=== PATIENT | female | born 1950 | race Two or more races ===

== ENCOUNTER → 2024-05-18 10:39 | Outpatient (CLI) | payer OTHER ==
[~2024-05-18 10:39] MED LIST: ATORVASTATIN CA40 MG PO; CANDESARTAN-HC1 EAC2 PO; CLONAZEPAM0.5 MG PO; GLIMEPIRIDE4 M1 PO; METOPROLOL SUCC50 MG PO; SERTRALINE HCL25 MG PO; SYNJARDY 12.5-1 EACH PO
== END | disposition home or self-care (01) ==
LOC: NUCLEAR 10:39
PROVIDERS: ATTEND Internal Medicine
DX: I10 Essential (primary) hypertension (principal); I44.7 Left bundle-branch block, unspecified

== ENCOUNTER 2024-05-18 12:42 | Inpatient (IN) | payer OTHER ==
[~2024-05-18] VITALS: Ht 121.9 cm; Wt 52.2 kg
[2024-05-18] MEDS ORDERED: ATORVASTATIN CA40 MG PO (13:06)
[2024-05-18] MEDS ORDERED: SYNJARDY 12.5-1 EACH PO (13:06)
[2024-05-18] MEDS ORDERED: SERTRALINE HCL25 MG PO (13:06)
[2024-05-18] MEDS ORDERED: METOPROLOL SUCC50 MG PO (13:07)
[2024-05-18] MEDS ORDERED: CANDESARTAN-HC1 EAC2 PO (13:07)
[2024-05-18] MEDS ORDERED: GLIMEPIRIDE4 M1 PO (13:07)
[2024-05-18] MEDS ORDERED: CLONAZEPAM0.5 MG PO (13:07)
--- NOTE | 2024-05-18 13:16 | NUR ---
PTE ALERTA Y ORIENTADA X3. ES TRAIDA POR RENARD YIP DE MEDICINA NUCLEAR QUIEN REFIERE QUE SE LE ESTABA REALIZANDO UN ECHO Y EL MISMO SALIO ALTERADO. ESTABAN MELLO ORDENA QUE PTE SEA LLEVADA A ER PARA SER ADMITIDA. SE REALIZA EKG EL CUAL SE PRESENTA A QUIEN ORDENA A UBICAR A PTE EN CRITICO CONECTADA A MONITOR CARDIACO Y OXIMETRIA DE PULSO CONTINUA. SE ENTREGA A RENARD MCDOWELL
[2024-05-18] MEDS ORDERED: NITROGLYCERIN 250 ML IV SCH (13:30)
[2024-05-18] MEDS ORDERED: FUROsemide 40 MG/4 ML VIAL IV ONE (13:30)
[2024-05-18 13:42] LABS: HEMATOCRIT 47.9 % (36.0-45.00); HEMOGLOBIN 16.3 g/dL (12.0-15.00); MEAN CELL VOLUME 90.5 fL (80.00-100.00); MEAN CORPUSCULAR HEMOGLOBIN 30.7 pg (27.00-32.0); PLATELET COUNT 224 K/uL (150-450); RED BLOOD COUNT 5.29 M/uL (4.00-6.00); RED CELL DISTRIBUTION WIDTH 14.7 % (11.5-14.5)
[2024-05-18 14:10] LABS: INR 1.24; PARTIAL THROMBOPLASTIN TIME 26.2 SECONDS (22.0-34.0); PROTHROMBIN TIME 13.3 SECONDS (9.0-11.5)
[2024-05-18 14:15] LABS: ALBUMIN 3.7 gm/dL (3.4-5.0); BILIRUBIN TOTAL 0.94 mg/dL (0.3-1.2); CALCIUM 9.9 mg/dL (8.5-10.1); CREATININE SERUM 0.85 mg/dL (0.55-1.02); GFR 65.93; GLOBULINA 3.9 G/DL (2.4-3.5); POTASSIUM 3.83 mEq/L (3.5-5.1); TOTAL PROTEIN 7.6 gm/dL (6.4-8.2)
--- NOTE | 2024-05-18 14:24 | NUR ---
1330 SE UBICA A PACIENTE EN AREA DE ICU-2, SE CONECTA A MONITOR CARDIACO Y OXIMETRIA DE PULSO CONTINUA. SE COLECTAN MUESTRAS DE LABORATORIO Y SE REALIZA CANALIZACION A PACIENTE EN BRAZO DERECHO X2 CON ANGIO #18, AMBAS PATENTES LIBRES DE EDEMA Y ERITEMA. EXTREMIDADES SUPERIORES E INFERIORES LIBRES DE EDEMA. 1358 SE NOTIFICAN ABG'S A TERAPISTA SPENCER 1415 SE INSERTA SENIOR BAJO MEDIDAS ESTERILES. 1440 DR. MELISSA MELLO PASA A CONSULTAR A PACIENTE 1445 TERAPISTA TJ REALIZA PRUEBA DE ABG'S
[2024-05-18 14:26] LABS: ABG PH 7.444 (7.35-7.45); ABG PO2 80.9 mmHg (80-100); ABG pCO2 30.6 mmHg (35-45); BASE EXCESS -2.4 mmol/l; BICARBONATE 20.5 mmol/l (23-25); SaO2 96.3 %; Tco2 21.4 mmol/l
[2024-05-18] MEDS ORDERED: NITROGLYCERIN IN 5 % DEXTROSE 250 ML IV SCH (14:30)
[2024-05-18 14:35] LABS: allen test SATISFACTORY; o2 32 %; puncture site RADIAL RIGHT
[2024-05-18] MEDS ORDERED: IPRATROPIUM BROMIDE 0.5 MG/2.5 ML AMPUL.NEB IH SCH (14:50)
[2024-05-18] MEDS ORDERED: ACETAMINOPHEN 500 MG GEL..CAP PO PRN (15:00)
[2024-05-18] MEDS ORDERED: INSULIN LISPRO 1,000 UNIT/10 ML UNITS SUBCUTANEO PRN (15:00)
[2024-05-18] MEDS ORDERED: DEXTROSE 50 % IN WATER 0.5 G/ML DISP.SYRIN IV PRN (15:00)
[2024-05-18 15:31] VITALS: BP 160/88; O2SAT 100
[2024-05-18 15:33] VITALS: BP 168/90
[2024-05-18 16:27] LABS: URINE APPEARANCE Clear; URINE BILIRRUBIN Negative (NEGATIVE); URINE BLOOD Small; URINE COLOR Yellow; URINE GLUCOSE Negative (NEGATIVE); URINE KETONE Negative (NEGATIVE); URINE LEUKOCYTE Negative; URINE NITRATE Negative; URINE PROTEIN 30 (NEGATIVE); URINE UROBILINOGEN 0.2 E.U./dl
[2024-05-18 16:30] LABS: URINE RBC 18.8 uL (0.0-20.8)
[2024-05-18 16:36] LABS: URINE BACTERIA 1.2 uL (0.0-1933); URINE EPITHELIAL CELLS 0.3 uL (0.0-38.8); URINE WBC 0.9 uL (0.0-23.2)
[2024-05-18] MEDS ORDERED: ENOXAPARIN SODIUM 60 MG/0.6 ML SYRINGE SUBCUTANEO SCH (17:00)
[2024-05-18 18:28] VITALS: BP 141/77; O2SAT 100
[2024-05-18 20:34] VITALS: BP 146/77; O2SAT 96
[2024-05-18] MEDS ORDERED: FUROsemide 20 MG/2 ML VIAL IV SCH (21:00)
[2024-05-18] MEDS ORDERED: METOPROLOL SUCCINATE 25 MG TAB.SR.24H PO SCH (21:27)
[2024-05-18 22:21] VITALS: BP 168/90; O2SAT 100
[2024-05-18 23:41] VITALS: BP 121/71; O2SAT 100
[2024-05-19] VITALS (10 sets, daily range): BP systolic 136–170; BP diastolic 77–99; O2SAT 98–100
[2024-05-19] MEDS ORDERED: FUROsemide 20 MG/2 ML VIAL IV SCH (01:00)
[2024-05-19 06:44] LABS: HEMATOCRIT 41.7 % (36.0-45.00); HEMOGLOBIN 14.5 g/dL (12.0-15.00); MEAN CELL VOLUME 88.8 fL (80.00-100.00); MEAN CORPUSCULAR HGB CONC 34.9 g/dl (32.0-36.0); PLATELET COUNT 157 K/uL (150-450); RED BLOOD COUNT 4.69 M/uL (4.00-6.00); RED CELL DISTRIBUTION WIDTH 14.6 % (11.5-14.5)
[2024-05-19] MEDS ORDERED: INSULIN LISPRO 1,000 UNIT/10 ML UNITS SUBCUTANEO PRN (06:45)
[2024-05-19 07:45] LABS: BILIRUBIN TOTAL 0.82 mg/dL (0.3-1.2); CALCIUM 9.2 mg/dL (8.5-10.1); CHOL HDL RATIO 3.4 (0-5.0); CREATININE SERUM 0.81 mg/dL (0.55-1.02); GFR 69.7; GLOBULINA 3.1 G/DL (2.4-3.5); MAGNESIUM 1.6 mg/dL (1.8-2.4); PHOSPHOROUS 5.3 mg/dL (2.5-4.9); POTASSIUM 3.44 mEq/L (3.5-5.1); TOTAL PROTEIN 6.1 gm/dL (6.4-8.2); TSH 1.81 uIU/mL (0.358-3.74)
[2024-05-19] MEDS ORDERED: FAMOTIDINE/PF 20 MG in 0.9 % SODIUM CHLORIDE 8 ML IV PUSH SCH (09:00)
[2024-05-19] MEDS ORDERED: SPIRONOLACTONE 25 MG TABLET PO SCH (09:00)
[2024-05-19] MEDS ORDERED: ATORVASTATIN CALCIUM 40 MG TABLET PO SCH (09:00)
[2024-05-19] MEDS ORDERED: SERTRALINE HCL 100 MG TABLET PO SCH (09:00)
[2024-05-19] MEDS ORDERED: INSULIN NPH HUM/REG INSULIN HM 1,000 UNIT/10 ML UNITS SUBCUTANEO STA (09:55)
[2024-05-19] MEDS ORDERED: MAGNESIUM SULFATE 1,000 MG in 0.9 % SODIUM CHLORIDE 50 ML IV ONE (11:00)
[2024-05-19] MEDS ORDERED: CLONAZEPAM 0.5 MG TABLET PO SCH (21:00)
[2024-05-20] VITALS (22 sets, daily range): BP systolic 113–156; BP diastolic 62–875; O2SAT 54–100
[2024-05-20] MEDS ORDERED: INSULIN NPH HUM/REG INSULIN HM 1,000 UNIT/10 ML UNITS SUBCUTANEO SCH (08:00)
[2024-05-21] VITALS (24 sets, daily range): BP systolic 80–174; BP diastolic 36–102; O2SAT 12–100
[2024-05-21] MEDS ORDERED: EMPAGLIFLOZIN 10 MG TABLET PO NR (12:00)
[2024-05-21] MEDS ORDERED: AMIODARONE HCL 200 MG TABLET PO SCH (21:00)
[2024-05-22] VITALS (11 sets, daily range): BP systolic 137–166; BP diastolic 66–96; O2SAT 100
[2024-05-22 07:45] LABS: HEMATOCRIT 41.5 % (36.0-45.00); HEMOGLOBIN 14.2 g/dL (12.0-15.00); MEAN CELL VOLUME 90.6 fL (80.00-100.00); MEAN CORPUSCULAR HEMOGLOBIN 30.9 pg (27.00-32.0); MEAN CORPUSCULAR HGB CONC 34.1 g/dl (32.0-36.0); PLATELET COUNT 177 K/uL (150-450); RED BLOOD COUNT 4.58 M/uL (4.00-6.00); RED CELL DISTRIBUTION WIDTH 14.3 % (11.5-14.5)
[2024-05-22 07:53] LABS: ALBUMIN 2.9 gm/dL (3.4-5.0); CALCIUM 9.1 mg/dL (8.5-10.1); CREATININE SERUM 0.94 mg/dL (0.55-1.02); GFR 58.7; PHOSPHOROUS 3.9 mg/dL (2.5-4.9); POTASSIUM 4.17 mEq/L (3.5-5.1)
[2024-05-22] MEDS ORDERED: ASPIRIN 81 MG TABLET.EC PO SCH (09:00)
[2024-05-22] MEDS ORDERED: LOSARTAN POTASSIUM 25 MG TABLET PO SCH (09:00)
[2024-05-22] MEDS ORDERED: EMPAGLIFLOZIN 10 MG TABLET PO SCH (09:00)
[2024-05-23 04:00] VITALS: BP 137/73; O2SAT 100
[2024-05-23] MEDS ORDERED: INSULIN NPH HUMAN ISOPHANE 1,000 UNITS/10 ML UNITS SUBCUTANEO SCH (08:00)
[2024-05-23 12:00] VITALS: BP 143/73; O2SAT 100
[2024-05-23 16:05] VITALS: BP 117/90; O2SAT 100
[2024-05-23] MEDS ORDERED: FUROsemide 20 MG/2 ML VIAL IV SCH (21:00)
[2024-05-23 21:18] VITALS: O2SAT 97
[2024-05-23 21:35] VITALS: BP 143/81; O2SAT 98
[2024-05-24] VITALS (9 sets, daily range): BP systolic 138–160; BP diastolic 73–85; O2SAT 93–98
[2024-05-24 06:05] LABS: HEMATOCRIT 45.7 % (36.0-45.00); HEMOGLOBIN 15.7 g/dL (12.0-15.00); MEAN CELL VOLUME 89.8 fL (80.00-100.00); MEAN CORPUSCULAR HEMOGLOBIN 30.8 pg (27.00-32.0); MEAN CORPUSCULAR HGB CONC 34.3 g/dl (32.0-36.0); PLATELET COUNT 207 K/uL (150-450); RED BLOOD COUNT 5.08 M/uL (4.00-6.00); RED CELL DISTRIBUTION WIDTH 14.3 % (11.5-14.5)
[2024-05-24 07:02] LABS: BILIRUBIN TOTAL 0.64 mg/dL (0.3-1.2); CALCIUM 9.5 mg/dL (8.5-10.1); CREATININE SERUM 1.3 mg/dL (0.55-1.02); GFR 40.38; GLOBULINA 4.1 G/DL (2.4-3.5); MAGNESIUM 2.3 mg/dL (1.8-2.4); PHOSPHOROUS 4.4 mg/dL (2.5-4.9); POTASSIUM 4.17 mEq/L (3.5-5.1); TOTAL PROTEIN 7.1 gm/dL (6.4-8.2)
[2024-05-24] MEDS ORDERED: FAMOtidine 20 MG TABLET PO SCH (09:00)
[2024-05-24] MEDS ORDERED: SODIUM CHLORIDE 0.45 % 1,000 ML IV SCH (14:00)
[2024-05-24] MEDS ORDERED: INSULIN REGULAR, HUMAN 1,000 UNIT/10 ML UNITS IV STA (17:31)
[2024-05-24] MEDS ORDERED: INSULIN NPH HUMAN ISOPHANE 1,000 UNITS/10 ML UNITS SUBCUTANEO STA (21:18)
[2024-05-25] VITALS (9 sets, daily range): BP systolic 147–160; BP diastolic 78–83; O2SAT 90–99
[2024-05-25 05:47] LABS: CALCIUM 10.2 mg/dL (8.5-10.1); CREATININE SERUM 1.04 mg/dL (0.55-1.02); GFR 52.24; POTASSIUM 4.89 mEq/L (3.5-5.1)
[2024-05-25] MEDS ORDERED: INSULIN NPH HUMAN ISOPHANE 1,000 UNITS/10 ML UNITS SUBCUTANEO SCH ×2 (08:00→21:00)
[2024-05-26] VITALS (10 sets, daily range): BP systolic 124–137; BP diastolic 69–81; O2SAT 95–100
[2024-05-26] MEDS ORDERED: INSULIN NPH HUMAN ISOPHANE 1,000 UNITS/10 ML UNITS SUBCUTANEO STA (09:27)
[2024-05-27 01:04] VITALS: BP 146/67; O2SAT 96
[2024-05-27 01:26] VITALS: O2SAT 95
[2024-05-27 05:31] VITALS: O2SAT 98
[2024-05-27 12:22] VITALS: BP 152/70; O2SAT 99
[2024-05-27 16:12] VITALS: BP 154/75; O2SAT 99
[2024-05-28 01:05] VITALS: BP 166/77; O2SAT 100
[2024-05-28 09:51] VITALS: BP 150/83; O2SAT 98
[2024-05-28] MEDS ORDERED: AMIODARONE HCL200 MG PO (13:27)
[2024-05-28] MEDS ORDERED: LIPITOR40 M1 PO (13:27)
[2024-05-28] MEDS ORDERED: LOSARTAN POTASS25 MG PO (13:28)
[2024-05-28] MEDS ORDERED: SPIRONOLACTONE25 MG PO (13:28)
[2024-05-28] MEDS ORDERED: TOPROL XL25 M1 PO (13:28)
[2024-05-28] MEDS ORDERED: ST. JOSEPH ASPI81 M2 PO (13:28)
[2024-05-28] MEDS ORDERED: SERTRALINE HCL25 MG PO (13:29)
[2024-05-28] MEDS ORDERED: CLONAZEPAM0.5 MG PO (13:29)
[2024-05-28] MEDS ORDERED: SERTRALINE HCL100 MG PO (13:29)
[2024-05-28] MEDS ORDERED: LASIX40 MG PO (13:30)
[2024-05-28] MEDS ORDERED: JARDIANCE10 MG PO (13:30)
[2024-05-28] MEDS ORDERED: FAMOTIDINE20 MG PO (13:30)
[2024-05-28] MEDS ORDERED: HUMULIN N100 UNIT/2 SUBCUTANEO ×2 (13:30)
== END 2024-05-28 15:09 | disposition home or self-care (01) | DRG 291 ==
LOC: ER 12:42 → ICU-2 15:50 → ICU 05-19 20:38 → MEDI 05-23 18:12
PROVIDERS: General Practice; Internal Medicine; Internal Medicine Nephrology; ADMIT Internal Medicine; ATTEND Internal Medicine
PROC: B22 Imaging, Heart, Computerized Tomography (CT Scan) (ICD-10-PCS; principal; 2024-05-18)
PROC: 4A033R1 Measurement of Arterial Saturation, Peripheral, Percutaneous Approach (ICD-10-PCS; 2024-05-18)
PROC: 3E0F7GC Introduction of Other Therapeutic Substance into Respiratory Tract, Via Natural or Artificial Opening (ICD-10-PCS; 2024-05-18)
PROC: B246ZZZ Ultrasonography of Right and Left Heart (ICD-10-PCS; 2024-05-22)
PROC: 4A12X4Z Monitoring of Cardiac Electrical Activity, External Approach (ICD-10-PCS; 2024-05-23)
DX: I11.0 Hypertensive heart disease with heart failure (principal); I50.21 Acute systolic (congestive) heart failure; I47.29 Other ventricular tachycardia; R06.02 Shortness of breath; E11.65 Type 2 diabetes mellitus with hyperglycemia; Z79.4 Long term (current) use of insulin